=== PATIENT | female | born 1950 | race African-American/Black ===

== ENCOUNTER 2018-07-20 13:52 | Emergency (ER) | payer MEDICAID, MEDICARE, OTHER ==
[~2018-07-20] VITALS: Ht 167.6 cm; Wt 60.0 kg
[~2018-07-20 13:52] MED LIST: AMLO5TAB88; BENZ0.5T3; HALO10TA13; HYDR12.529; LISI40TA4; METO-385; OMEP20CA4; TRAM50TA; XANAX
[2018-07-20] MEDS ORDERED: SODIUM CHLORIDE 0.9% 1,000 ML IV ONE ×2 (14:30→19:45)
[2018-07-20 15:20] LABS: BASOPHILS % 0.6 % (0.0-2.0); EOSINOPHILS % 0.2 % (0.0-5.0); HEMATOCRIT. 37.4 % (36.0-48.0); HEMOGLOBIN. 12.9 g/dL (12.0-16.0); LYMPHOCYTES % 25.1 % (20.0-50.0); MEAN CORPUSCULAR HEMOGLOBIN 33.9 pg (28.0-32.0); MEAN CORPUSCULAR VOLUME 98.3 fL (81.0-99.0); MEAN PLATELET VOLUME 7.5 fl (7.4-10.4); NEUTROPHILS % 68.1 % (40.0-76.0); PLATELET 194 x1000/uL (130-400); RED CELL DISTRIBUTION WIDTH 13.5 % (11.6-14.6)
[2018-07-20 15:21] LABS: CHLORIDE 100 mEq/L (98-107)
[2018-07-20 15:24] LABS: D-DIMER 0.57 mg/L FEU (<0.50); INR 1.1; PROTHROMBIN TIME 11.5 sec (9.1-11.1)
[2018-07-20 19:03] VITALS: BP 108/64
[2018-07-20] MEDS ORDERED: IOHEXOL-350 100 ML BOTTLE ONE (21:18)
== END 2018-07-20 20:11 | disposition short-term general hospital (02) ==
LOC: ER 14:15 → CANBEDREQ 21:01
DX: R55 Syncope and collapse (principal); G90.8 Other disorders of autonomic nervous system; I12.9 Hypertensive chronic kidney disease with stage 1 through stage 4 chronic kidney disease, or unspecified chronic kidney disease; N18.9 Chronic kidney disease, unspecified; F20.9 Schizophrenia, unspecified; E87.6 Hypokalemia; I44.0 Atrioventricular block, first degree; J44.9 Chronic obstructive pulmonary disease, unspecified; J98.11 Atelectasis; Z95.0 Presence of cardiac pacemaker; Z88.0 Allergy status to penicillin; Z79.899 Other long term (current) drug therapy; Z88.5 Allergy status to narcotic agent; F10.21 Alcohol dependence, in remission
CPT/HCPCS: 36415; 71045; 71275; 80053; 83605; 83880; 84484; 85025; 85379; 85610; 93005; 96360; 96361; 99285; J7030; Q9967

== ENCOUNTER 2019-06-23 01:48 | Inpatient (IN) | payer MEDICARE, OTHER ==
[~2019-06-23] VITALS: Ht 160 cm; Wt 50.1 kg
[~2019-06-23 01:48] MED LIST changes: -BENZ0.5T3; +BENZ0.5T43
[2019-06-23] MEDS ORDERED: IPRATROPIUM BROMIDE (0.02%) 0.5MG/2.5ML NEB HHN STA (03:06)
[2019-06-23] MEDS ORDERED: ALBUTEROL (0.083%) 2.5MG/3ML NEB HHN STA (03:06)
[2019-06-23] MEDS ORDERED: ONDANSETRON HCL 4MG TABLET PO ONE (03:15)
[2019-06-23] MEDS ORDERED: ASPIRIN 81MG TABLET PO ONE (03:15)
[2019-06-23 03:25] LABS: CLARITY URINE CLEAR (CLEAR); COLOR URINE YELLOW (YELLOW); KETONES URINE NEGATIVE (NEGATIVE); LEUKOCYTE ESTERASE URINE NEGATIVE (NEGATIVE); NITRITE URINE NEGATIVE (NEGATIVE); OCCULT BLOOD URINE NEGATIVE (NEGATIVE); PH URINE 6.5 (4.5-8.0); PROTEIN URINE NEGATIVE (NEGATIVE); SPECIFIC GRAVITY URINE 1.006 (1.005-1.030); UROBILINOGEN URINE 0.2 E.U./dL (0.2-1.0)
[2019-06-23 03:49] LABS: *AMPHETAMINES SCREEN URINE NEGATIVE (NEGATIVE); *BARBITURATES SCREEN URINE NEGATIVE (NEGATIVE); *COCAINE SCREEN URINE NEGATIVE (NEGATIVE)
[2019-06-23 03:50] LABS: *BENZODIAZEPINES SCREEN URINE NEGATIVE (NEGATIVE); CANNABINOID URINE SCREEN NEGATIVE (NEGATIVE); METHADONE URINE SCREEN NEGATIVE (NEGATIVE); OPIATES URINE SCREEN NEGATIVE (NEGATIVE); PHENCYCLIDINE URINE SCREEN NEGATIVE (NEGATIVE)
[2019-06-23 04:00] LABS: BASOPHILS % 0.9 % (0.0-2.0); EOSINOPHILS % 0.1 % (0.0-5.0); HEMATOCRIT. 32.8 % (36.0-48.0); HEMOGLOBIN. 10.7 g/dL (12.0-16.0); LYMPHOCYTES % 21.4 % (20.0-50.0); MEAN CORPUSCULAR VOLUME 86.2 fL (81.0-99.0); MEAN PLATELET VOLUME 6.9 fl (7.4-10.4); MONOCYTES % 3.9 % (2.0-8.0); NEUTROPHILS % 73.7 % (40.0-76.0); PLATELET 293 x1000/uL (130-400); RED CELL DISTRIBUTION WIDTH 19.8 % (11.6-14.6)
[2019-06-23 04:03] LABS: CHLORIDE 112 mEq/L (98-107)
[2019-06-23 04:07] LABS: ETHANOL BLOOD < 10 mg/dL
[2019-06-23 04:11] LABS: CREATINE KINASE 168 IU/L (26-192)
[2019-06-23] MEDS ORDERED: POTASSIUM CHLORIDE 20MEQ TABLET SR PO ONE (04:30)
[2019-06-23] MEDS ORDERED: ONDANSETRON HCL 4MG/2ML INJ IV PRN (08:45)
[2019-06-23] MEDS ORDERED: CLONIDINE 0.1MG TABLET PO PRN (08:45)
[2019-06-23] MEDS ORDERED: ACETAMINOPHEN 325MG TABLET PO PRN (08:45)
[2019-06-23] MEDS ORDERED: DOCUSATE SODIUM 100MG CAPSULE PO PRN (08:45)
[2019-06-23] MEDS ORDERED: MORPHINE SULFATE 2 MG/ML CPJ (NOT FOR IM USE) IV PRN (08:45)
[2019-06-23] MEDS ORDERED: GUAIFENESIN 200MG/10ML SUGAR FREE UDC PO PRN (08:45)
[2019-06-23] MEDS ORDERED: DIPHENHYDRAMINE 50MG/ML VIAL IV PRN (08:45)
[2019-06-23] MEDS ORDERED: MAGNESIUM/ALUMINUM HYDROXIDE/SIMETHICONE 30ML UDC PO PRN (08:45)
[2019-06-23 08:47] LABS: PHOSPHORUS 2.9 mg/dL (2.5-4.9)
[2019-06-23 10:28] VITALS: BP 116/63
[2019-06-23] MEDS ORDERED: IPRATROPIUM/ALBUTEROL 0.5-3(2.5)MG/3ML NEB HHN PRN (11:00)
[2019-06-23] MEDS: ENOXAPARIN 40MG/0.4ML SYR SUBCUT SCH (11:20)
[2019-06-23] MEDS ORDERED: POTASSIUM CHLORIDE 20MEQ TABLET SR PO NR (13:00)
[2019-06-23] MEDS: SODIUM CHLORIDE 0.9% 1,000 ML IV SCH (16:11)
[2019-06-23 16:23] VITALS: BP 130/74
[2019-06-23 20:00] VITALS: BP 133/70
[2019-06-24] VITALS: BP 136/69
[2019-06-24] MEDS: SODIUM CHLORIDE 0.9% 1,000 ML IV SCH (01:29)
[2019-06-24 04:00] VITALS: BP 128/55
[2019-06-24 08:00] VITALS: BP 135/60
[2019-06-24] MEDS: ENOXAPARIN 40MG/0.4ML SYR SUBCUT SCH (09:00)
[2019-06-24 12:00] VITALS: BP 131/62
== END 2019-06-24 16:27 | disposition home or self-care (01) | DRG 311 ==
LOC: ER 01:48 → 7WST 06:03 → ENRESERV 08:42
PROVIDERS: ADMIT Internal Medicine; ATTEND Internal Medicine
DX: I24.9 Acute ischemic heart disease, unspecified (principal); D64.9 Anemia, unspecified; E87.6 Hypokalemia; F17.210 Nicotine dependence, cigarettes, uncomplicated; F20.9 Schizophrenia, unspecified; I11.0 Hypertensive heart disease with heart failure; I25.10 Atherosclerotic heart disease of native coronary artery without angina pectoris; I50.9 Heart failure, unspecified; Z95.0 Presence of cardiac pacemaker; Z88.6 Allergy status to analgesic agent; Z88.0 Allergy status to penicillin; Z79.899 Other long term (current) drug therapy; F10.20 Alcohol dependence, uncomplicated; Y90.9 Presence of alcohol in blood, level not specified
CPT/HCPCS: 36415; 71045; 80305; 80320; 81003; 82550; 83735; 83880; 84100; 84484; 93005; 93306; 93970; 94640; 99285; J1650; J7611; Q0162; G0480

== ENCOUNTER 2022-10-18 10:42 | Inpatient (IN) | payer MEDICARE, MEDICAID ==
[~2022-10-18] VITALS: Ht 160 cm; Wt 71.2 kg
[~2022-10-18 10:42] MED LIST changes: -LISI40TA4; -XANAX
[2022-10-18] MEDS ORDERED: MORPHINE SULFATE 2 MG/ML CPJ (NOT FOR IM USE) IV ONE (11:15)
[2022-10-18] MEDS ORDERED: NITROGLYCERIN OINT 1GM/INCH UDPKT TD ONE (11:15)
[2022-10-18 15:28] LABS: BASOPHILS % 0.6 % (0.0-2.0); EOSINOPHILS % 1.1 % (0.0-5.0); HEMATOCRIT. 42.8 % (36.0-48.0); HEMOGLOBIN. 13.8 g/dL (12.0-16.0); LYMPHOCYTES % 36.2 % (20.0-50.0); MEAN CORPUSCULAR HEMOGLOBIN 32.6 pg (28.0-32.0); MEAN CORPUSCULAR VOLUME 101.2 fL (81.0-99.0); NEUTROPHILS % 54.1 % (40.0-76.0); PLATELET 170 x1000/uL (130-400); RED BLOOD CELL COUNT 4.23 mill/uL (4.2-5.4); RED CELL DISTRIBUTION WIDTH 14.8 % (11.6-14.6)
[2022-10-18 15:34] LABS: CHLORIDE 105 mEq/L (98-107)
[2022-10-18 15:36] LABS: INR 1.1; PROTHROMBIN TIME 11.9 sec (9.6-11.0)
[2022-10-18] MEDS ORDERED: ONDANSETRON HCL 4MG/2ML INJ IV PRN (16:00)
[2022-10-18] MEDS ORDERED: IPRATROPIUM/ALBUTEROL 0.5-3(2.5)MG/3ML NEB NEB PRN (16:00)
[2022-10-18] MEDS ORDERED: ACETAMINOPHEN 325MG TABLET PO PRN (16:00)
[2022-10-18] MEDS ORDERED: DOCUSATE SODIUM 100MG CAPSULE PO PRN (16:00)
[2022-10-18] MEDS: METHYLPREDNISOLONE SOD SUCC 125 MG/2 ML VIAL IV SCH ×2 (16:00→22:00)
[2022-10-18] MEDS ORDERED: MORPHINE SULFATE 2 MG/ML CPJ (NOT FOR IM USE) IV PRN (16:00)
[2022-10-18] MEDS ORDERED: NALOXONE HCL 0.4MG/ML VIAL IV PRN (16:15)
[2022-10-18] MEDS: HALOPERIDOL 5MG TABLET PO SCH (17:00)
[2022-10-18] MEDS ORDERED: MVI, ADULT NO.1 10 ML, FOLIC ACID 1 MG, THIAMINE HCL 100 MG in SODIUM CHLORIDE 0.9% 1,0... IV SCH ×4 (17:00)
[2022-10-18] MEDS ORDERED: BENZTROPINE MESYLATE 2MG TABLET PO SCH (21:00)
[2022-10-19 00:15] LABS: CREATINE KINASE 140 IU/L (26-192); CREATINE KINASE MB FRACTION < 1.0 ng/mL (0.5-3.6)
[2022-10-19] MEDS: ENOXAPARIN 40MG/0.4ML SYR SUBCUT SCH ×2 (00:45→17:29)
[2022-10-19] MEDS: LEVETIRACETAM 500MG TABLET PO SCH ×3 (00:47→21:44)
[2022-10-19] MEDS: THIAMINE HCL 100MG TABLET PO SCH ×2 (00:47→08:58)
[2022-10-19] MEDS: BACLOFEN 10MG TABLET PO SCH ×4 (00:48→21:44)
[2022-10-19] MEDS: DIVALPROEX SODIUM 500MG ER TABLET PO SCH ×2 (00:48→08:58)
[2022-10-19] MEDS: METOPROLOL TARTRATE 25MG TABLET PO SCH ×3 (00:48→21:45)
[2022-10-19] MEDS: HALOPERIDOL 5MG TABLET PO SCH ×3 (00:49→17:59)
[2022-10-19] MEDS: METHYLPREDNISOLONE SOD SUCC 125 MG/2 ML VIAL IV SCH ×4 (04:58→21:44)
[2022-10-19 07:27] LABS: CREATINE KINASE 49 IU/L (26-192); CREATINE KINASE MB FRACTION < 1.0 ng/mL (0.5-3.6)
[2022-10-19] MEDS: ASPIRIN 81MG EC TABLET PO SCH (08:58)
[2022-10-19 09:30] VITALS: BP 155/76
[2022-10-19 10:20] VITALS: BP 155/76
[2022-10-19 11:55] VITALS: BP 171/83
[2022-10-19] MEDS: FAMOTIDINE 20MG TABLET PO SCH (12:58)
[2022-10-19 16:11] VITALS: BP 167/63
[2022-10-19] MEDS ORDERED: MVI, ADULT NO.1 10 ML, FOLIC ACID 1 MG, THIAMINE HCL 100 MG in SODIUM CHLORIDE 0.9% 1,0... IV ONE ×4 (17:00)
[2022-10-19] MEDS: LORAZEPAM 2MG/ML CPJ IV PRN (17:28)
[2022-10-19] MEDS ORDERED: ALBUTEROL (0.083%) 2.5MG/3ML NEB HHN PRN (18:45)
[2022-10-19] MEDS ORDERED: IPRATROPIUM BROMIDE (0.02%) 0.5MG/2.5ML NEB HHN PRN (18:45)
[2022-10-19 20:00] VITALS: BP 181/93
[2022-10-19] MEDS ORDERED: HYDRALAZINE 20MG/ML VIAL IV PRN (22:00)
[2022-10-19] MEDS: BENZTROPINE MESYLATE 1MG TABLET PO SCH (22:18)
[2022-10-20] VITALS: BP 172/92
[2022-10-20] MEDS: METHYLPREDNISOLONE SOD SUCC 125 MG/2 ML VIAL IV SCH ×4 (03:58→21:29)
[2022-10-20 04:00] VITALS: BP 149/74
[2022-10-20] MEDS: BACLOFEN 10MG TABLET PO SCH ×3 (05:32→22:00)
[2022-10-20 07:12] LABS: CHLORIDE 106 mEq/L (98-107)
[2022-10-20 07:20] LABS: BASOPHILS % 0.1 % (0.0-2.0); HEMATOCRIT. 43.1 % (36.0-48.0); HEMOGLOBIN. 14.5 g/dL (12.0-16.0); LYMPHOCYTES % 15.2 % (20.0-50.0); MEAN CORPUSCULAR HEMOGLOBIN 32.8 pg (28.0-32.0); MEAN CORPUSCULAR VOLUME 97.2 fL (81.0-99.0); MEAN PLATELET VOLUME 8.4 fl (7.4-10.4); MONOCYTES % 3.8 % (2.0-8.0); NEUTROPHILS % 80.9 % (40.0-76.0); PLATELET 199 x1000/uL (130-400); RED BLOOD CELL COUNT 4.44 mill/uL (4.2-5.4); RED CELL DISTRIBUTION WIDTH 14.4 % (11.6-14.6)
[2022-10-20 07:21] LABS: PHOSPHORUS 2.9 mg/dL (2.5-4.9)
[2022-10-20 08:23] VITALS: BP 145/73
[2022-10-20] MEDS: LEVETIRACETAM 500MG TABLET PO SCH ×2 (09:01→22:25)
[2022-10-20] MEDS: METOPROLOL TARTRATE 25MG TABLET PO SCH ×2 (09:01→22:25)
[2022-10-20] MEDS: ASPIRIN 81MG EC TABLET PO SCH (09:02)
[2022-10-20] MEDS: THIAMINE HCL 100MG TABLET PO SCH (09:02)
[2022-10-20] MEDS: FAMOTIDINE 20MG TABLET PO SCH (09:02)
[2022-10-20] MEDS: HALOPERIDOL 5MG TABLET PO SCH ×2 (09:02→16:59)
[2022-10-20] MEDS: DIVALPROEX SODIUM 500MG ER TABLET PO SCH (09:02)
[2022-10-20] MEDS ORDERED: GABA-532 MT (09:53)
[2022-10-20] MEDS ORDERED: BENZ2TAB7 PO (09:53)
[2022-10-20] MEDS ORDERED: HYDR-4001 MT (09:53)
[2022-10-20] MEDS ORDERED: MULT-1146 MT (09:53)
[2022-10-20] MEDS ORDERED: OMEP20CA14 MT (09:53)
[2022-10-20] MEDS ORDERED: ASCO500C18 MT (09:53)
[2022-10-20] MEDS ORDERED: METH85CR30 TOP (09:53)
[2022-10-20] MEDS ORDERED: DICL100G31 TP (09:53)
[2022-10-20] MEDS ORDERED: HALO5TAB MT (09:53)
[2022-10-20] MEDS ORDERED: BACL-141 MT (09:53)
[2022-10-20] MEDS ORDERED: SUCR1TAB30 PO (09:53)
[2022-10-20] MEDS ORDERED: LIDO700A30 TP (09:53)
[2022-10-20] MEDS ORDERED: POTA-205 MT (09:53)
[2022-10-20] MEDS ORDERED: LEVE750T4 MT (09:53)
[2022-10-20] MEDS ORDERED: DIVA250T4 MT (09:53)
[2022-10-20] MEDS ORDERED: FURO20TA4 MT (09:53)
[2022-10-20] MEDS ORDERED: ASPI-1406 MT (09:53)
[2022-10-20] MEDS ORDERED: DONE10TA43 MT (09:53)
[2022-10-20] MEDS ORDERED: MELA3TAB40 MT (09:53)
[2022-10-20 11:40] VITALS: BP 153/83
[2022-10-20 15:38] VITALS: BP 142/70
[2022-10-20] MEDS: LORAZEPAM 2MG/ML CPJ IV PRN (17:00)
[2022-10-20] MEDS: ENOXAPARIN 40MG/0.4ML SYR SUBCUT SCH (17:00)
[2022-10-20 20:00] VITALS: BP 122/60
[2022-10-20 20:02] LABS: HEPATITIS B SURFACE ANTIGEN NEGATIVE
[2022-10-20] MEDS: BENZTROPINE MESYLATE 1MG TABLET PO SCH (22:25)
[2022-10-21] VITALS: BP 117/53
[2022-10-21] MEDS: METHYLPREDNISOLONE SOD SUCC 125 MG/2 ML VIAL IV SCH ×4 (03:48→20:47)
[2022-10-21 04:00] VITALS: BP 111/61
[2022-10-21] MEDS: BACLOFEN 10MG TABLET PO SCH ×3 (05:30→20:51)
[2022-10-21 06:41] LABS: HEMATOCRIT 39.7 % (36.0-48.0); HEMOGLOBIN 13.3 g/dL (12.0-16.0); MEAN CORPUSCULAR HEMOGLOBIN 32.5 pg (28.0-32.0); MEAN CORPUSCULAR VOLUME 96.9 fL (81.0-99.0); PLATELET 217 x1000/uL (130-400); RED CELL DISTRIBUTION WIDTH 14.6 % (11.6-14.6)
[2022-10-21 07:00] LABS: CHLORIDE 107 mEq/L (98-107)
[2022-10-21 08:00] VITALS: BP 136/74
[2022-10-21] MEDS: ASPIRIN 81MG EC TABLET PO SCH (08:27)
[2022-10-21] MEDS: THIAMINE HCL 100MG TABLET PO SCH (08:27)
[2022-10-21] MEDS: METOPROLOL TARTRATE 25MG TABLET PO SCH ×2 (08:28→20:42)
[2022-10-21] MEDS: LEVETIRACETAM 500MG TABLET PO SCH ×2 (08:28→20:42)
[2022-10-21] MEDS: FAMOTIDINE 20MG TABLET PO SCH (08:28)
[2022-10-21] MEDS: HALOPERIDOL 5MG TABLET PO SCH ×2 (08:29→16:23)
[2022-10-21] MEDS: DIVALPROEX SODIUM 500MG ER TABLET PO SCH (08:30)
[2022-10-21] MEDS: HYDROCODONE/ACETAMINOPHEN 5/325MG TABLET PO PRN (08:38)
[2022-10-21 12:00] VITALS: BP 140/59
[2022-10-21 16:00] VITALS: BP 135/67
[2022-10-21] MEDS: ENOXAPARIN 40MG/0.4ML SYR SUBCUT SCH (16:23)
[2022-10-21 20:00] VITALS: BP 166/62
[2022-10-21] MEDS: BENZTROPINE MESYLATE 1MG TABLET PO SCH (20:43)
[2022-10-22] VITALS: BP 133/56
[2022-10-22] MEDS: HYDROCODONE/ACETAMINOPHEN 5/325MG TABLET PO PRN ×2 (01:15→09:22)
[2022-10-22] MEDS: METHYLPREDNISOLONE SOD SUCC 125 MG/2 ML VIAL IV SCH ×2 (03:58→09:22)
[2022-10-22 04:00] VITALS: BP 117/67
[2022-10-22] MEDS: BACLOFEN 10MG TABLET PO SCH ×2 (04:39→14:36)
[2022-10-22 07:21] LABS: HEMATOCRIT 39.8 % (36.0-48.0); HEMOGLOBIN 13.4 g/dL (12.0-16.0); MEAN CORPUSCULAR HEMOGLOBIN 32.5 pg (28.0-32.0); MEAN CORPUSCULAR VOLUME 96.6 fL (81.0-99.0); PLATELET 210 x1000/uL (130-400); RED BLOOD CELL COUNT 4.12 mill/uL (4.2-5.4); RED CELL DISTRIBUTION WIDTH 14.1 % (11.6-14.6)
[2022-10-22 08:00] VITALS: BP 118/67
[2022-10-22 08:03] LABS: CHLORIDE 109 mEq/L (98-107)
[2022-10-22] MEDS: HALOPERIDOL 5MG TABLET PO SCH (09:17)
[2022-10-22] MEDS: FAMOTIDINE 20MG TABLET PO SCH (09:17)
[2022-10-22] MEDS: DIVALPROEX SODIUM 500MG ER TABLET PO SCH (09:18)
[2022-10-22] MEDS: THIAMINE HCL 100MG TABLET PO SCH (09:18)
[2022-10-22] MEDS: LEVETIRACETAM 500MG TABLET PO SCH (09:22)
[2022-10-22] MEDS: ASPIRIN 81MG EC TABLET PO SCH (09:24)
[2022-10-22] MEDS: METOPROLOL TARTRATE 25MG TABLET PO SCH (09:25)
[2022-10-22 12:00] VITALS: BP 127/59
[2022-10-22 14:20] VITALS: BP 127/59
== END 2022-10-22 17:18 | DRG 205 ==
LOC: ER 10:42 → 7WST 16:18 → EDBEDREQ 21:04 → EDBEDREQTM 21:04 → 7WST 10-20 09:24
PROVIDERS: ADMIT Internal Medicine Nephrology; ATTEND Internal Medicine Nephrology
DX: M94.0 Chondrocostal junction syndrome [Tietze] (principal); L89.154 Pressure ulcer of sacral region, stage 4; G82.20 Paraplegia, unspecified; G93.40 Encephalopathy, unspecified; E44.1 Mild protein-calorie malnutrition; I48.91 Unspecified atrial fibrillation; F20.9 Schizophrenia, unspecified; G20 Parkinson's disease; G40.909 Epilepsy, unspecified, not intractable, without status epilepticus; Z20.822 Contact with and (suspected) exposure to COVID-19; I11.0 Hypertensive heart disease with heart failure; I50.9 Heart failure, unspecified; R29.6 Repeated falls; R53.81 Other malaise; G89.29 Other chronic pain; M19.90 Unspecified osteoarthritis, unspecified site; F17.210 Nicotine dependence, cigarettes, uncomplicated; Z74.01 Bed confinement status; Z79.82 Long term (current) use of aspirin; Z95.0 Presence of cardiac pacemaker; Z88.0 Allergy status to penicillin; Z88.8 Allergy status to other drugs, medicaments and biological substances; Z79.899 Other long term (current) drug therapy; Z68.27 Body mass index [BMI] 27.0-27.9, adult; Z86.73 Personal history of transient ischemic attack (TIA), and cerebral infarction without residual deficits
CPT/HCPCS: 36415; 71045; 73560; 73700; 80048; 80053; 82550; 82553; 83735; 83880; 84100; 84134; 84484; 85025; 85027; 86803; 87340; 93005; 93306; 93880; 97162; 99285; A6261; C1893; J0360; J1630; J1650; J2060; J2270; J2930; J3411; J3490; J7030